=== PATIENT | male | born 1990 | race Caucasian/White ===

== ENCOUNTER 2022-02-12 13:19 | Emergency (ER) | payer OTHER, SELFPAY ==
[2022-02-12 13:19] VITALS: BP 155/103; PULSE 105; RESP 18; TEMP 36.4; O2SAT 89; BMI 26.6
--- NOTE | 2022-02-12 13:30 | RAD_ITS ---
STUDY: X-RAY - RIGHT SHOULDER REASON FOR EXAM: Right shoulder pain, right shoulder injury last night. TECHNIQUE: 4 view(s) of the shoulder. COMPARISON: None. FINDINGS: Normal glenohumeral articulation. Normal acromioclavicular joint. Normal acromion. Normal humeral head and visualized proximal humerus. The soft tissue structures are unremarkable. Normal visualized pulmonary apex. RAD/Shoulder min 2 Views IMPRESSION: Normal x-ray examination of the right shoulder. Electronically Signed: Alok Marrero MD at 14:13 EDT ,
--- NOTE | 2022-02-12 13:32 | EKG12_ITS ---
Test Reason : FALL Blood Pressure : / mmHG Vent. Rate : 094 BPM Atrial Rate : 094 BPM P-R Int : 130 ms QRS Dur : 114 ms QT Int : 352 ms P-R-T Axes : 044 050 057 degrees QTc Int : 440 ms Normal sinus rhythm Normal ECG Confirmed by AUGUSTINE PHILLIPS, CATRINA ([id number]), production editor BHARGAV WILKINSON ([id number]) on 02/15/2022 11:16:12 A M Referred By: JOSHUA Confirmed By:LETITIA BRADSHAW MD
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
== END 2022-02-12 14:53 | disposition home or self-care (01) ==
PROVIDERS: Emergency Provider Emergency Medicine; Visit Provider Emergency Medicine
DX: S43.51XA Sprain of right acromioclavicular joint, initial encounter (principal); W19.XXXA Unspecified fall, initial encounter; Y93.89 Activity, other specified; Z87.891 Personal history of nicotine dependence
CPT/HCPCS: 73030; 93005; 99282